=== PATIENT | female | born 1940 | race African-American/Black ===

== ENCOUNTER 2018-10-30 13:37 | Emergency (ER) | payer OTHER ==
[~2018-10-30] VITALS: Ht 170.2 cm; Wt 71.0 kg
[2018-10-30] MEDS ORDERED: IBUPROFEN 600MG TABLET PO STA (14:53)
[2018-10-30] MEDS ORDERED: HYDROCODONE/ACETAMINOPHEN 5/325MG TABLET PO ONE (16:45)
[2018-10-30 16:55] VITALS: BP 151/82
== END 2018-10-30 17:03 | disposition home or self-care (01) ==
LOC: ER 13:37
DX: S20.212A Contusion of left front wall of thorax, initial encounter (principal); V49.49XA Driver injured in collision with other motor vehicles in traffic accident, initial encounter; Y93.89 Activity, other specified; Y92.89 Other specified places as the place of occurrence of the external cause; Y99.8 Other external cause status; I10 Essential (primary) hypertension; Z88.5 Allergy status to narcotic agent
CPT/HCPCS: 71045; 93005; 99284